=== PATIENT | male | born 2000 | race Caucasian/White ===

== ENCOUNTER → 2020-04-04 14:36 | Outpatient (BNVA) | payer OTHER, SELFPAY | PROVIDERS: Family Provider Family Medicine; PCP Family Medicine; Visit Provider Nurse Practitioner Family | DX: Z11.59 Encounter for screening for other viral diseases (principal); L27.0 Generalized skin eruption due to drugs and medicaments taken internally | CPT/HCPCS: 87400; 87635 ==